=== PATIENT | female | born 1965 | race Caucasian/White ===

== ENCOUNTER 2021-10-23 20:52 | Emergency (ER) | payer OTHER ==
[~2021-10-23] VITALS: Ht 157.5 cm; Wt 72.6 kg
--- NOTE | 2021-10-23 21:02 | NUR ---
BIBS C/O MECH SLIP AND FALL ON RIGHT SIDE C/O RIGHT SIDED RIB PAIN MORE PAIN UPON INHALATION -KO -HEADTRUAMA. PATIENT ALERT AND ORIENTED X3. AMBULATORY WITH PAIN ON INHALATION IN BED 09.
--- NOTE | 2021-10-23 21:09 | NUR ---
AEROSPACE CONTROL AND WARNING SYSTEMS AT PT'S BEDSIDE
--- NOTE | 2021-10-23 21:12 | NUR ---
Paolo powers in [facility] - 10/23/21 at 2112 by YASHIRA XRAY DONE AT BEDSIDE
--- NOTE | 2021-10-23 21:53 | NUR ---
Followed up with [facility]
[2021-10-23 21:54] VITALS: BP 125/76
== END 2021-10-23 22:20 | disposition home or self-care (01) ==
LOC: ER 20:54
DX: S20.211A Contusion of right front wall of thorax, initial encounter (principal); W01.0XXA Fall on same level from slipping, tripping and stumbling without subsequent striking against object, initial encounter; Y93.89 Activity, other specified; Y92.89 Other specified places as the place of occurrence of the external cause; Y99.8 Other external cause status
CPT/HCPCS: 71100-TC

== ENCOUNTER 2023-12-17 18:05 | Emergency (ER) | payer OTHER ==
[~2023-12-17] VITALS: Ht 162.6 cm; Wt 77.1 kg
[2023-12-17 18:56] VITALS: TEMP 98.6
[2023-12-17] MEDS ORDERED: PRED50TA PO (19:48)
[2023-12-17] MEDS ORDERED: ALBU8.5H8 INH (19:48)
[2023-12-17] MEDS ORDERED: predniSONE 20 MG TABLET ONE (19:53)
[2023-12-17] MEDS: predniSONE 50 MG TABLET PO ONE (19:57)
[2023-12-17 20:04] VITALS: BP 131/76; O2SAT 97
== END 2023-12-17 20:04 | disposition home or self-care (01) ==
LOC: ER 18:15
DX: J06.9 Acute upper respiratory infection, unspecified (principal); I10 Essential (primary) hypertension; Z20.822 Contact with and (suspected) exposure to COVID-19
CPT/HCPCS: 71045-TC

== ENCOUNTER 2024-09-26 10:40 | Emergency (ER) | payer OTHER ==
[~2024-09-26] VITALS: Ht 167.6 cm; Wt 70.3 kg
[~2024-09-26 10:40] MED LIST: ALBU8.5H8 INH; PRED50TA PO
[2024-09-26 11:16] LABS: APPEARANCE,URINE CLEAR (CLEAR); BILIRUBIN,URINE NEGATIVE (NEGATIVE); BLOOD, URINE NEGATIVE Ery/uL (NEGATIVE); COLOR,URINE YELLOW (YELLOW); KETONES,URINE NEGATIVE (NEGATIVE); LEUKOCYTE ESTERASE ,URINE NEGATIVE (NEGATIVE); NITRITE, URINE NEGATIVE (NEGATIVE); PROTEIN,URINE NEGATIVE (NEGATIVE); UGLUCOSE NEGATIVE (NEGATIVE); UROBILINOGEN,URINE 0.2 EU/dL (0.2)
[2024-09-26] MEDS ORDERED: ONDANSETRON HCL/PF 4 MG/2 ML VIAL ONE (11:54)
[2024-09-26] MEDS ORDERED: KETOROLAC TROMETHAMINE 15 MG/ML VIAL ONE (11:54)
[2024-09-26] MEDS ORDERED: MORPHINE SULFATE INJ 4 MG/ML DISP.SYRIN ONE (11:54)
[2024-09-26] MEDS: ONDANSETRON HCL/PF 4 MG/2 ML VIAL IVP ONE (11:59)
[2024-09-26] MEDS: IV NS 0.9% 1,000 ML BAG IV ONE (12:04)
[2024-09-26] MEDS: KETOROLAC TROMETHAMINE 15 MG/ML VIAL IV ONE (12:04)
[2024-09-26] MEDS: MORPHINE SULFATE INJ 2 MG/ML DISP.SYRIN IV ONE (12:28)
[2024-09-26 12:29] LABS: CALCIUM, SERUM 9.5 mg/dL (8.5-10.1); CREATININE 0.6 mg/dL (0.6-1.3); POTASSIUM 4.4 mmol/L (3.5-5.1)
[2024-09-26 12:38] LABS: ALBUMIN 3.7 g/dL (3.4-5.0); BILIRUBIN,DIRECT 0.1 mg/dL (0.0-0.2); BILIRUBIN,TOTAL 0.8 mg/dL (0.2-1.0); TOTAL PROTEIN, SERUM 6.5 g/dL (6.4-8.2)
[2024-09-26 13:12] LABS: BASOPHILS % (AUTO) 0.6 % (0.0-2.0); EOSINOPHILS # (AUTO) 0.1 K/uL (0.0-0.7); EOSINOPHILS % (AUTO) 1.3 % (0.0-6.0); HEMATOCRIT 39 % (33-45); HEMOGLOBIN 13.1 g/dL (11.5-14.8); LYMPHOCYTES % (AUTO) 35.5 % (20.0-44.0); MEAN CORPUSCULAR HEMOGLOBIN 31 PG (26.0-33.0); MEAN CORPUSCULAR HGB CONC 34 g/dl (31.0-36.0); MEAN CORPUSCULAR VOLUME 91 fL (82-100); MONOCYTES # (AUTO) 0.2 K/uL (0.1-1.30); MONOCYTES % (AUTO) 4.1 % (2.0-12.0); NEUTROPHILS # (AUTO) 3.3 K/uL (1.8-8.9); NEUTROPHILS % (AUTO) 58.5 % (43.0-81.0); PLATELET COUNT (AUTO) 95 K/uL (150-450); RED BLOOD CELL COUNT(AUTO) 4.28 MIL/uL (4.0-5.2); RED CELL DISTRIBUTION WIDTH 13.7 % (11.5-15.0); WHITE BLOOD COUNT (AUTO) 5.7 K/uL (4.3-11.0)
[2024-09-26] MEDS ORDERED: NAPR-1164 PO (13:34)
[2024-09-26 13:36] LABS: EOSINOPHILS % (MANUAL) 1 % (0-4); LYMPHOCYTES % (MANUAL) 30 % (16-48); MONOCYTES % (MANUAL) 13 % (0-11.0); NEUTROPHILS % (MANUAL) 56 (42-76); PLATELET ESTIMATE DECREASED
[2024-09-26 14:44] VITALS: BP 128/77; TEMP 98.6; O2SAT 94
== END 2024-09-26 14:45 | disposition home or self-care (01) ==
LOC: ER 10:46
DX: R10.9 Unspecified abdominal pain (principal); I10 Essential (primary) hypertension; Z60.2 Problems related to living alone
CPT/HCPCS: 99285; 74176; 96374; 96375; 96361; 85025; 80048; 87086; 83690; 80076; 81003; 36415; 85007; J1885; J2270; J2405; J7030 ×2

== ENCOUNTER 2025-08-18 07:12 | Emergency (ER) | payer SELFPAY ==
[~2025-08-18] VITALS: Ht 154.9 cm; Wt 65.8 kg
[~2025-08-18 07:12] MED LIST changes: +NAPR-1164 PO
[2025-08-18 07:14] VITALS: BP 197/100; TEMP 98.4; O2SAT 96
[2025-08-18] MEDS ORDERED: cetrizine 10 MG TABLET ONE (07:24)
[2025-08-18] MEDS ORDERED: FAMOTIDINE (20 MG) 20 MG TABLET ONE (07:25)
[2025-08-18] MEDS: FAMOTIDINE (20 MG) 20 MG TABLET PO ONE (07:27)
[2025-08-18] MEDS: cetrizine 10 MG TABLET PO ONE (07:27)
[2025-08-18] MEDS ORDERED: FAMO-131 PO (07:28)
[2025-08-18] MEDS ORDERED: CETI-90 PO (07:28)
[2025-08-18] MEDS ORDERED: DIPH25TA62 PO (07:28)
[2025-08-18] MEDS ORDERED: PRED20TA PO (07:28)
== END 2025-08-18 07:40 | disposition home or self-care (01) ==
LOC: ER 07:14
DX: R22.0 Localized swelling, mass and lump, head (principal); I10 Essential (primary) hypertension; Z79.52 Long term (current) use of systemic steroids; Z60.2 Problems related to living alone
CPT/HCPCS: 99284; J7512 ×2